=== PATIENT | male | born 1930 | race Caucasian/White ===

== ENCOUNTER → 2017-05-19 | Outpatient (CLI) | payer MEDICARE, OTHER ==
[~2017-05-19] MED LIST: CEPHALEXIN250 M1; CEPHALEXIN500 M1 PO; CHOLESTEROL PILL; COUMADIN 22.5 MG/TAB PO; COUMADIN 5MG5 MG/TAB PO; COUMADIN5 MG PO; DOCUSATE100 MG PO; FISH OIL1000 MG PO; FISH OIL500 MG PO; FOLIC ACID0.4 MG PO; GARLIC1 TAB PO; LASIX 40MG TABL40 MG PO; LISINOPRIL10 MG PO; LORTAB 7.5/5001 TAB PO; MULTIPLE VITAMI1 CAP PO; MULTIPLE VITAMI1 TA5 PO; NORCO 325 MG-51 TAB PO; PEPCID 20MG TAB20 MG PO; PRAVACHOL 40MG40 MG PO; PREDNISONE20 MG PO; PRILOSEC 20MG20 MG PO; PRINIVIL10 MG PO; STATIN MED; ULTRAM 50MG TAB50 MG PO; VITAMIN C500 MG PO; VITAMIN D 400400 IU PO; [UNRECOGNIZED DRUG - OTHER] PO
== END ==
LOC: COL.RAD 13:21
DX: M25.511 Pain in right shoulder (principal)
CPT/HCPCS: J3301; Q9967

== ENCOUNTER → 2017-09-09 | Outpatient (CLI) | payer MEDICARE, OTHER | LOC: COL.RAD 12:15 | DX: M19.012 Primary osteoarthritis, left shoulder (principal); M19.011 Primary osteoarthritis, right shoulder | CPT/HCPCS: J3301; Q9967 ==

== ENCOUNTER → 2017-09-30 | Outpatient (CLI) | payer MEDICARE, OTHER | LOC: MHCPAIN 11:44 | DX: G89.29 Other chronic pain (principal); M79.2 Neuralgia and neuritis, unspecified; M79.1 Myalgia; M25.511 Pain in right shoulder; Z87.891 Personal history of nicotine dependence | CPT/HCPCS: G0463 ==